=== PATIENT | female | born 1985 | race Caucasian/White ===

== ENCOUNTER 2018-03-13 23:10 | Emergency (ER) | payer OTHER ==
--- NOTE | 2018-03-13 23:18 | ED Physician Documentation ---
General Adult - HISTORIAN Historian: patient - HPI Stated Complaint: headache and right flank pain (known kidney stone) Chief Complaint: Headache Onset: hours (2) Timing: still present Severity: mild Further Comments: yes (She states she was treated today at [facility] for a kidney stone. 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 she is having right flank pain but called the ambulance for the headache. 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 She has not contacted her neurologist about these side effects. She denies any head injury . She states her [facility] is a 4 1/10 scale.) Last known Well Code/Unknown Code: Unknown - ROS CONST: sweating CVS/RESP: denies: chest pain, shortness of breath, cough GI/: denies: problems urinating, vomiting, nausea, diarrhea MS/SKIN/LYMPH: denies: rash NEURO/PSYCH: headache. 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 ) Immunizations: UTD Allergies/Adverse Reactions: Allergies Allergy/AdvReac Type Severity Reaction Status Date / Time No Known Allergies Allergy Unverified 03/13/18 23:26 Home Medications: Ambulatory Orders Medication Instructions Recorded Dextroamphetamine/Amphetamine 10 mg PO DAILY 03/13/18 [Adderall 10 mg Tablet] Duloxetine HCl [Cymbalta] 20 mg PO DAILY 03/13/18 Topiramate [Topamax] 200 mg PO DAILY 03/13/18 - SOCIAL HX Smoking History: cigarettes Alcohol Use: rarely Drug Use: marijuana - FAMILY HX Family History: No - REVIEWED ASSESSMENTS Nursing Assessment Reviewed: Yes Vitals Reviewed: Yes Progress - Progress Progress: 0042: resting quietly in bed DG 0048: she is aware of test results states she uses PCP and meth 3-4 days ago. She then took one of her moms Valium when her head started to hurt. She is aware she needs to call her PCP for possible urology appt and then her neuro for follow up on meds DG ED Results Lab/Radiology - Radiology Radiology Impressions: Head CT without contrast Clinical history: Headache for 4 days. Dehydration. Technique: CT examination of the brain is performed in contiguous axial slices with sagittal and coronal reconstructions. Findings: 4th ventricle lies in a normal midline position. The ventricles are mildly prominent and asymmetric with the right lateral ventricle larger than the left. There is no hypodense or hyperdense mass or intracranial hemorrhage. The moore-white matter differentiation is preserved. The visualized paranasal sinuses and the mastoid air cells are clear Impression: 1. Mild asymmetry of the lateral ventricles with is a normal variant 2. No acute intracranial changes. Electronically signed on Mar 13, 2018 11:49:50 PM CDT by: Jefferson [facility] Adult Physical Exam - PHYSICAL EXAM GENERAL APPEARANCE: mild distress EENT: eye inspection normal, ENT inspection normal NECK: normal inspection RESPIRATORY: no resp distress, chest non-tender, breath sounds normal CVS: reg rate & rhythm, heart sounds normal, equal pulses ABDOMEN: soft, normal bowel sounds, no distension, non-tender BACK: normal inspection, no CVA tenderness SKIN: warm/dry, normal color EXTREMITIES: non-tender, normal range of motion, no evidence of injury, no edema NEURO: oriented X3, CN's nml as tested, motor nml, sensation nml, mood/affect nml, cognition normal Discharge Clincal Impression: Headache Qualifiers: Headache type: other headache syndrome Qualified Code(s): G44.89 - Other headache syndrome Referrals: Primary Doctor,No [Primary Care Provider] - 2 Days Additional Instructions: 1. 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 Increase fluids 3. No drugs or alcohol 4. See Neuro about increased headaches 5. Take meds as prescribed by neuro 6. See PCP in 2-4 days if no improvement for possible referral to urology 7. Return to [facility] for any concerns Condition: Stable Disposition: 01 HOME, SELF-CARE Decision to Admit: NO Date of Decison to Admit: 03/14/18 Decision Time: 00:44
--- NOTE | 2018-03-13 23:55 | Diagnostic Imaging Report ---
THELMA JACKSON [facility] [address] [facility] [address] [place], [place]. [address] Report Submission Date: Mar 13, 2018 11:49:50 PM CDT Patient Study Name: ASHANTI SMITH Date: Mar 13, 2018 11:28:36 PM CDT Modality Type: CT Gender: F Description: CT BRAIN W/O CONTRAST : 81 Institution: [facility] Physician: THELMA JACKSON Head CT without contrast Clinical history: Headache for 4 days. Dehydration. Technique: CT examination of the brain is performed in contiguous axial slices with sagittal and coronal reconstructions. Findings: 4th ventricle lies in a normal midline position. The ventricles are mildly prominent and asymmetric with the right lateral ventricle larger than the left. There is no hypodense or hyperdense mass or intracranial hemorrhage. The moore-white matter differentiation is preserved. The visualized paranasal sinuses and the mastoid air cells are clear Impression: 1. Mild asymmetry of the lateral ventricles with is a normal variant 2. No acute intracranial changes. Electronically signed on Mar 13, 2018 11:49:50 PM CDT by: Jefferson REDDY
[2018-03-14] MEDS: 0.9 % SODIUM CHLORIDE 1,000 ML IV ONE (00:20)
[2018-03-14 00:29] LABS: MEAN CORPUSCULAR HEMOGLOBIN 33.5 pg (28.0-34.0); MEAN CORPUSCULAR VOLUME 96.7 fl (80.0-100.0)
[2018-03-14 00:36] LABS: eGFR (African) > 60; eGFR (Non-African) > 60
[2018-03-14 02:52] VITALS: BP 105/74
[2018-03-14 11:17] LABS: CANNABINOIDS NON NEGATIVE ng/mL (< 50); METHYLENEDIOXYMETHAMPHETAMINE NEGATIVE ng/mL (<500)
[2018-03-15 11:03] LABS: SEGMENTED NEUTROPHILS % 84 % (39-79)
[2018-03-15 11:04] LABS: EOSINOPHILS % 2 % (0-7); MONOCYTES % 3 % (0-11); TOXIC VACUOLATION SLIGHT
== END 2018-03-14 02:45 | disposition home or self-care (01) ==
LOC: ED 23:10
DX: G44.89 Other headache syndrome (principal)
CPT/HCPCS: 70450; 80053; 80320; 80377; 85025; J7030; 96365; 99284; G0480; G0481; S1016